=== PATIENT | male | born 1960 | race Caucasian/White ===

== ENCOUNTER 2020-01-05 11:23 | Emergency (ER) | payer MEDICARE, MEDICAID, SELFPAY ==
[2020-01-05 11:40] VITALS: BP 146/96; PULSE 92; RESP 18; TEMP 36.8; O2SAT 98; BMI 23.5
--- NOTE | 2020-01-05 11:56 | ECG_ITS ---
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 Measurements Intervals [place] Rate: 82 P: 81 TN: 139 QRS: 61 QRSD: 86 T: 58 QT: 362 QTc: 424 Interpretive Statements SINUS RHYTHM POSSIBLE LEFT ATRIAL ENLARGEMENT [-0.1mV P WAVE IN V1/V2] INDETERMINATE AXIS Compared to ECG 12/18/2018 20:54:57 Indeterminate axis now present Sinus bradycardia no longer present Electronically Signed On 01-05-2020 16:05:37 CDT by Kali Lebron M.D. [email or web address].[email or web address] Surgerycentral miss[facility] residential centerCargoSensegeorgetown behavioral hospital.[address]/store/NU/[id number] f
--- NOTE | 2020-01-05 11:56 | XRR_ITS ---
PROCEDURE INFORMATION: Exam: XR Chest, 1 View Exam date and time: 01/05/2020 12:12 PM Age: 59 years old Clinical indication: Chest pain; Type not specified; Patient HX: Chest pressure/ pain/light headed/tingling mouth TECHNIQUE: Imaging protocol: XR of the chest Views: 1 view. COMPARISON: CR Chest 2 views* 19471 12/18/2018 4:56 PM FINDINGS: Lungs: No lung consolidation or pulmonary edema. Pleural space: No pleural effusion or pneumothorax. Heart/Mediastinum: The cardiac silhouette is not enlarged. The mediastinal contours are normal. Bones/joints: No acute osseous abnormality. XR/XR chest 1V portable [id number] IMPRESSION: No acute abnormality.
[2020-01-05 12:38] LABS: Basophils # 0.1 10^3/uL (0.0-0.1); Basophils % 0.8 %; Eosinophils % 0.1 %; Hematocrit 44.1 % (42.0-52.0); Hemoglobin 15.2 g/dL (11.7-16.6); Lymphocytes % 23.5 %; Mean Corpuscular HGB Conc 34.5 g/dL (30.0-36.0); Mean Corpuscular Hemoglobin 34.4 pg (28.0-34.0); Mean Corpuscular Volume 99.8 fL (80-94); Mean Platelet Volume 8.4 fL (7.4-10.4); Monocytes # 0.5 10^3/uL (0.2-0.9); Monocytes % 6.3 %; Neutrophils # 5.81 10^3/uL (1.8-7.7); Neutrophils % 68.9 %; Nucleated Red Blood Cells % 0 %; Platelet Count 297 10^3/cmm (130-400); Red Blood Count 4.42 10^6/uL (4.1-5.3); Red Cell Distribution Width 13.1 % (12.1-15.1); White Blood Count 8.4 10^3/uL (4.0-10.0)
[2020-01-05 12:53] LABS: Alanine Aminotransferase 11 U/L (0-41); Albumin Level 4.6 g/dL (3.5-5.2); Alkaline Phosphatase 81 IU/L (40-130); Anion Gap 15.4 (5-19); Aspartate Amino Transferase 23 U/L (0-40); Blood Urea Nitrogen 9 mg/dL (8-23); Calcium 9.5 mg/dL (8.5-10.5); Carbon Dioxide 23 mmol/L (22-29); Chloride 99 mmol/L (98-107); Creatine Phosphokinase 145 U/L (39-308); Globulin 2.8 g/dL (1.3-4.6); Glucose 89 mg/dL (65-115); Osmolality Calculated 271 mOsm/kg (285-295); Potassium 4.4 mmol/L (3.5-5.1); Sodium 133 mmol/L (136-145); Total Bilirubin 0.4 mg/dL (0.15-1.2); Total Protein 7.4 g/dL (6.6-8.7)
[2020-01-05 12:57] LABS: Troponin(5th) Baseline 6 ng/L (0-15)
[2020-01-05 13:13] VITALS: BP 136/88; BP 140/87; BP 142/97; PULSE 68; PULSE 76; PULSE 83; PULSE 87; RESP 16; O2SAT 97
[2020-01-05] MEDS: sodium chloride 0.9% 1,000 ML 999 ML IV ×2 (13:26→13:47)
--- NOTE | 2020-01-05 13:28 | W.ED.CHESTPA ---
HPI - Chest Pain General: Chief Complaint: Chest Pain Stated Complaint: CHEST PRESSURE/LIGHTEHEADED/TINGLING MOUTH Time Seen by Provider: 01/05/20 12:41 Source: patient Mode of arrival: ambulatory Limitations: no limitations History of Present Illness: HPI narrative: Mr. Ramírez is a nice 59-year-old male who comes in complaining of multiple issues. He complains of that is relieved by belching. Sometimes he will get an associated headache with this. He also at times will feel lightheaded. He denies any shortness of breath, nausea vomiting, diaphoresis or any aggravating or alleviating factors other than the belching. He gets no worse with exertion. He has been getting the symptoms for over a year but over the past month they are becoming more frequent. He states he was admitted to the hospital approximately 1 year ago for the same symptoms although they were more severe at that time but no cause was determined. He denies any past medical history, he denies any past surgical history and he states at this time he just feels weak in general but no other focal complaints. Associated symptoms: Deny abdominal pain, diaphoresis, dyspnea, fever(s), nausea, palpitations, syncope or vomiting Review of Systems Const: Reports: fatigue; Denies: fever(s), chills, body aches, malaise or diaphoresis Eyes: Denies: change in vision, blurry vision, blind spots, photophobia, eye discharge or eye redness ENMT: Denies: throat pain, odynophagia, hoarseness, swelling of lips/tongue, oral sores, ear or mastoid pain, ear discharge, change in hearing or nasal discharge Card: Reports: chest pain; Denies: palpitations, irregular heart rhythm, edema, lightheadedness, syncope, pre-syncope, dyspnea on exertion or orthopnea Resp: Denies: dyspnea, productive cough, non-productive cough, wheezing, hemoptysis or chest congestion GI: Denies: abdominal pain, nausea, vomiting, hematemesis, coffee ground emesis, heartburn, diarrhea, constipation, GI cramping, hematochezia or melena : Denies: flank pain, dysuria, urinary frequency, urinary urgency or hematuria Musc: Denies: neck pain, back pain, extremity pain, extremity swelling, joint pain, joint swelling, joint redness, joint warmth or joint stiffness Skin/Breast: Denies: rash, pruritus, erythema, skin tenderness or jaundice Neuro: Reports: headache(s); Denies: numbness in extremities, weakness in extremities, sensory changes, lack of coordination, difficulty walking, dizziness, vertigo, confusion, Slurred speech present or seizure-like activity Ric/Lymph: Denies: easy bruising, easy bleeding, petechiae, purpura or enlarged lymph nodes All/Imm: Denies: urticaria, throat swelling, tongue swelling, facial swelling or acute wheezing PFSH ED PFSH: Medical History No pertinent past medical history Surgical History No pertinent past surgical history Physical Exam Const: COMMON NORMALS: no acute distress, patient oriented x3, no limitations, healthy appearing and well nourished GENERAL APPEARANCE: cooperative, well kempt and well developed HENMT: COMMON NORMALS: normocephalic, atraumatic, external ears normal, EAC's normal and Normal external nose present HEAD & SCALP: normal to inspection, normocephalic and atraumatic FACE & SINUS: normal facial exam and face symmetric NOSE: Normal external nose present and Normal nares present EXTERNAL EAR: Yes external ears normal EXTERNAL AUDITORY CANAL: EAC's normal MOUTH: Normal oral and palatal mucosa present, lip normal and tongue normal Eye: COMMON NORMALS: Equal, round and reactive pupils present and conjunctivae normal GENERAL EYE: appearance normal, both eyes and all related structures ALIGNMENT: Yes alignment normal PERIORBITAL: periorbital findings normal EYELID: eyelids normal CONJUNCTIVA: Yes conjunctivae normal SCLERA: sclerae normal PUPIL: Yes Equal, round and reactive pupils present Neck/C-Spine: COMMON NORMALS: full ROM, no lymphadenopathy, supple, no meningeal signs and no JVD GENERAL: Yes normal visual inspection and Yes trachea midline Chest: COMMONS NORMALS: normal inspection of the chest and normal palpation of entire chest wall Resp: COMMON NORMALS: normal respiratory effort, No retractions and No use of accessory muscles EFFORT & INSPECTION: Yes able to speak in complete sentences and Yes symmetric chest movement AUSCULTATION: no crackles, no rales, no rhonchi and no wheezes Cardio: COMMON NORMALS: no JVD, regular rate, regular rhythm, S1 normal heart sound present and S2 normal heart sound present RATE: regular rate RHYTHM: regular rhythm HEART SOUNDS: S1 normal heart sound present, S2 normal heart sound present, no click, no gallops, no murmurs, no rubs and abnormal split S2 GI: COMMON NORMALS: Soft to palpation and No hepatosplenomegaly present PALPATION: Yes Soft to palpation, No Tenderness to palpation present (GI), No Guarding due to palpation present (GI), No Rigid due to palpation, Yes No hepatosplenomegaly present, No Hernia present, No Palpable mass present and No Pulsatile mass present : COMMON NORMALS: Yes no CVA tenderness BLADDER/KIDNEY EXAM: Yes no CVA tenderness Back/Pelvis: COMMON NORMALS: no CVA tenderness, thoracic and lumbar spine normal to inspection, no thoracic nor lumbar tenderness and thoraco-lumbar ROM normal Extremity: COMMON NORMALS: normal to inspection, full ROM, capillary refill normal, no joint enlargement, no clubbing, cyanosis or edema and no calf tenderness Neuro: COMMON NORMALS: patient oriented x3, CN's II-XII intact bilaterally, moves all extremities, no focal motor deficits and no sensory deficits noted MENINGEAL SIGNS: Yes no meningeal signs SPEECH: speech normal Psych: COMMON NORMALS: mental status grossly normal, Normal thought process present, cooperative, normal affect, speech normal and activity/motor behavior normal APPEARANCE: Yes well kempt SPEECH: Yes normal speech THOUGHT PROCESS: Normal thought process present Skin: COMMON NORMALS: no rashes or lesions noted, turgor normal, no jaundice, no petechiae and no mottling GENERAL SKIN EXAM: no rashes or lesions noted and turgor normal Course Vital Signs: Vital signs: Vital Signs Temperature 98.2 F 01/05/20 11:40 Pulse Rate 82 01/05/20 15:01 Respiratory Rate 15 01/05/20 15:01 Blood Pressure 134/84 01/05/20 15:01 Pulse Oximetry 97 01/05/20 15:01 MDM - Chest Pain MDM Narrative: Medical decision making narrative: Mr. Leos is a nice 59-year-old male comes in complaining of multiple complaints the most serious of which I believe is probably chest pain. Patient has a heart score of 2 and has 2- EKGs with 2 troponins which are unremarkable. Patient's pain is very atypical in nature. Nonetheless I offered admission for evaluation and care but he declined. He has elected to go home and follow-up with his regular doctor but does understand he is welcome to return here if he changes his mind. Patient is aware he is leaving without complete evaluation and is leaving AGAINST MEDICAL ADVICE. He understands the risk of leaving is ultimately or severe permanent disability. Patient showed no sign of incapacity. Patient asked multiple questions about outpatient follow-up versus other etiologies for his pain but after the long discussion he has elected to go home. He does understand he can return at any time. Lab Data: Labs: Lab Results 01/05/20 01/05/20 01/05/20 Range/Units 12:30 12:30 12:30 WBC 8.4 (4.0-10.0) 10^3/ uL RBC 4.42 (4.1-5.3) 10^6/u L Hgb 15.2 (11.7-16.6) g/dL Hct 44.1 (42.0-52.0) % MCV 99.8 H (80-94) fL MCH 34.4 H (28.0-34.0) pg MCHC 34.5 (30.0-36.0) g/dL RDW 13.1 (12.1-15.1) % Plt Count 297 (130-400) 10^3/c mm MPV 8.4 (7.4-10.4) fL Neut % (Auto) 68.9 % Lymph % (Auto) 23.5 % [place] % (Auto) 6.3 % Eos % (Auto) 0.1 % Baso % (Auto) 0.8 % Neut # (Auto) 5.81 (1.8-7.7) 10^3/u L Lymph # (Auto) 2.0 (0.8-4.8) 10^3/u L [place] # (Auto) 0.5 (0.2-0.9) 10^3/u L Eos # (Auto) 0.0 (0.0-0.8) 10^3/u L Baso # (Auto) 0.1 (0.0-0.1) 10^3/u L Nucleated RBC % (a uto) 0 % Nucleated RBCs # 0.0 /100WBC Sodium 133 L (136-145) mmol/L Potassium 4.4 (3.5-5.1) mmol/L Chloride 99 (98-107) mmol/L Carbon Dioxide 23 (22-29) mmol/L Anion Gap 15.4 (5-19) BUN 9 (8-23) mg/dL Creatinine 1.0 (0.7-1.2) mg/dL GFR Calculation 76.0 L (90-130) mL/min Glucose 89 (65-115) mg/dL Calculated Osmolal ity 271 L (285-295) mOsm/k g Calcium 9.5 (8.5-10.5) mg/dL Total Bilirubin 0.4 (0.15-1.2) mg/dL AST 23 (0-40) U/L ALT 11 (0-41) U/L Alkaline Phosphata se 81 (40-130) IU/L Creatine Kinase 145 (39-308) U/L Troponin T Baselin e 6 (0-15) ng/L Troponin T 120 Min [place] (0-15) ng/L Delta Troponin T (0-10) ABS# Total Protein 7.4 (6.6-8.7) g/dL Albumin 4.6 (3.5-5.2) g/dL Globulin 2.8 (1.3-4.6) g/dL 01/05/20 Range/Units 14:24 WBC (4.0-10.0) 10^3/ uL RBC (4.1-5.3) 10^6/u L Hgb (11.7-16.6) g/dL Hct (42.0-52.0) % MCV (80-94) fL MCH (28.0-34.0) pg MCHC (30.0-36.0) g/dL RDW (12.1-15.1) % Plt Count (130-400) 10^3/c mm MPV (7.4-10.4) fL Neut % (Auto) % Lymph % (Auto) % [place] % (Auto) % Eos % (Auto) % Baso % (Auto) % Neut # (Auto) (1.8-7.7) 10^3/u L Lymph # (Auto) (0.8-4.8) 10^3/u L [place] # (Auto) (0.2-0.9) 10^3/u L Eos # (Auto) (0.0-0.8) 10^3/u L Baso # (Auto) (0.0-0.1) 10^3/u L Nucleated RBC % (a uto) % Nucleated RBCs # /100WBC Sodium (136-145) mmol/L Potassium (3.5-5.1) mmol/L Chloride (98-107) mmol/L Carbon Dioxide (22-29) mmol/L Anion Gap (5-19) BUN (8-23) mg/dL Creatinine (0.7-1.2) mg/dL GFR Calculation (90-130) mL/min Glucose (65-115) mg/dL Calculated Osmolal ity (285-295) mOsm/k g Calcium (8.5-10.5) mg/dL Total Bilirubin (0.15-1.2) mg/dL AST (0-40) U/L ALT (0-41) U/L Alkaline Phosphata se (40-130) IU/L Creatine Kinase (39-308) U/L Troponin T Baselin e (0-15) ng/L Troponin T 120 Min [place] 6.26 (0-15) ng/L Delta Troponin T 0.26 (0-10) ABS# Total Protein (6.6-8.7) g/dL Albumin (3.5-5.2) g/dL Globulin (1.3-4.6) g/dL Imaging Data^: CXR: My impression: No acute cardiopulmonary findings. EKG Data^: EKG 1: Attestation: I personally reviewed and interpreted this EKG as follows: EKG interpretation date: 01/05/20 EKG interpretation time: 11:39 Interpretation: Normal sinus rhythm at 82 beats a minute, nonspecific ST and T wave changes. EKG 2: Attestation: I personally reviewed and interpreted this EKG as follows: EKG interpretation date: 01/05/20 EKG interpretation time: 13:43 Interpretation: Normal sinus rhythm at 65 beats a minute no acute ST or T wave changes. Discharge Plan Discharge Patient Disposition: Home Clinical Impression: Chest pain Qualifiers: Chest pain type: unspecified Qualified Code(s): R07.9 - Chest pain, unspecified Condition: Stable Prescriptions: No Action ibuprofen 800 mg Tablet 800 mg PO Q8H PRN (Reason: Pain) RF: 0 Imitrex 25 mg Tablet 25 mg PO Q2H PRN (Reason: Migraine Headache) RF: 0 promethazine 25 mg Tablet 25 mg PO Q6H PRN (Reason: Nausea) RF: 0 aspirin 81 mg Tablet,Chewable 81 mg PO DAILY RF: 0 Discharge Orders: Discharge Order (Routine); Ordered 01/05/20 Ordered By: Eugenia Porter Referrals: Ger Lopez [Primary Care Provider] - 1-3 days Ute Mills MD [Physician] - 1-3 days Discharge Diet: Advance as tolerated Discharge Activity: Increase activity as tolerated Patient Instructions: Chest Pain (ED) Activity Restrictions/Additional Instructions: Please return to the ER immediately for any of the signs or symptoms listed on your discharge instruction sheets, worsening/changing of your symptoms, you are not getting better as quickly as expected, or for ANY other cause or concerns. I have recommended and offered to check your heart further including admission for stress testing but you have declined. Of course any heart problem is life-threatening so if you change your mind, your symptoms change or worsen, you pass out or nearly pass out, he developed leg swelling or edema, or you simply change your mind you are more than welcome to return to the ER for further evaluation and care. Coding Level of Care Code ED Obstetrics Nurse Practitioner for [place] Fwd Exam Comprehensive
--- NOTE | 2020-01-05 13:52 | PC.NURSE ---
EKG done at 1348 and shown to ER doctor
--- NOTE | 2020-01-05 13:56 | ECG_ITS ---
[facility] Test Date: 2020-01-05 Pat Name: Lei Ramírez Department: Room: Gender: Male Supervisor [employer]: : 1960 Requested By: Laith Medina Order Number: [id number] Barb MD: Kali Lebron M.D. Measurements Intervals [place] Rate: 65 P: 66 DE: 136 QRS: 13 QRSD: 89 T: 57 QT: 412 QTc: 430 Interpretive Statements SINUS RHYTHM Compared to ECG 01/05/2020 11:39:18 Indeterminate axis no longer present Electronically Signed On 01-05-2020 16:19:55 CDT by Kali Lebron M.D. [email or web address] A BoatAzaire Networkspromedica [facility]iance [facility] hospital.[employer]/store/[id number]
[2020-01-05 14:00] VITALS: BP 131/86; PULSE 84; RESP 17; O2SAT 19
[2020-01-05 14:55] LABS: Troponin 5 2HR 6.26 ng/L (0-15); Troponin 5 2HR Delta 0.26 ABS# (0-10)
[2020-01-05 15:01] VITALS: BP 134/84; PULSE 82; RESP 15; O2SAT 97
== END 2020-01-05 15:27 | disposition home or self-care (01) ==
PROVIDERS: Family Medicine; Emergency Provider Emergency Medicine; PCP Student in an Organized Health Care Education/Training Program
DX: R07.9 Chest pain, unspecified (principal); Z79.82 Long term (current) use of aspirin
CPT/HCPCS: 12345; 36415; 71045; 80053; 82550; 84484; 85025; 93005; 96360; 96361; 99283; 99284; J7030